=== PATIENT | male | born 1970 | race Hispanic/Latino ===

== ENCOUNTER 2018-04-06 20:59 | Emergency (ER) | payer OTHER ==
[2018-04-06 21:09] VITALS: BP 138/96; PULSE 114; RESP 20; TEMP 97.8; O2SAT 98
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
== END 2018-04-06 22:50 | disposition home or self-care (01) ==
LOC: C.ER 20:59
DX: Z04.1 Encounter for examination and observation following transport accident (principal); V03.10XA Pedestrian on foot injured in collision with car, pick-up truck or van in traffic accident, initial encounter; Y92.410 Unspecified street and highway as the place of occurrence of the external cause